=== PATIENT | female | born 1980 | race Asian ===

== ENCOUNTER 2022-03-09 18:41 | Emergency (ER) | payer OTHER, SELFPAY ==
--- NOTE | 2022-03-09 18:45 | ED.URI ---
HPI - URI/Sore Throat General Chief Complaint: Upper Respiratory Infection Stated Complaint: Sore Throat Time Seen by Provider: 03/09/22 19:06 Source: patient and RN notes reviewed Mode of arrival: ambulatory Limitations: no limitations History of Present Illness HPI Narrative: 42-year-old female presents concern for sore throat with painful swallowing, painful talking. She reports her symptoms started on Tuesday with sore throat, aches, chills, headache. Reports she had her sore throat is continuing. Reports she has been using throat lozenges and doing saltwater gargles without relief. She reports she was at an [employer] game Tuesday or before symptoms started. Reports she was seen at an eye doctor today and diagnosed with conjunctivitis. MD elicited complaint: sore throat Related Data Allergies Allergy/AdvReac Type Severity Reaction Status Date / Time No Known Allergies Allergy Verified 03/09/22 19:05 Review of Systems Review of Systems: CONSTITUTIONAL: Report malaise, chills. Denies sweats, or fever. EYES: Denies visual changes, redness, or discharge. ENT: Denies rhinorrhea, congestion, sinus pain, otalgia. Reports sore throat. CARDIOVASCULAR: Denies chest pain, palpitations, or edema. RESPIRATORY: Denies cough. Denies dyspnea. GASTROINTESTINAL: Denies abdominal pain, nausea, vomiting, diarrhea SKIN: Denies rash or itching. MUSCULOSKELETAL: Denies myalgia. NEUROLOGIC: Reports headache. All systems reviewed & are unremarkable except as noted in HPI and below PMFSH Comments At time of signature, agree with nursing past medical, surgical, social and family history. There is no relevant family history pertinent to the presenting complaint Exam Narrative: GENERAL: Well-appearing, well-nourished, and in no acute distress. HEAD: Normocephalic EYES: PERRLA, conjunctivae clear ENT: Nares clear. Mucous membranes moist. TM pearly sow with sharp light reflex bilaterally; no tragal tenderness. Oropharynx erythematous without lesions. Tonsils enlarged and without exudate, no drooling, no hoarseness, no trismus, uvula midline. NECK: Supple. No lymphadenopathy CHEST: Clear to auscultation, breath sounds equal. No wheezing, rhonchi, rales, or stridor. No respiratory distress, speaks in full sentences. HEART: Regular rate and rhythm. No murmur heard. SKIN: Warm, dry, no rash. NEURO: Alert and oriented x3. PSYCH: Normal mood and affect Course Course Emergency Course: Patient is aware of diagnosis, understands and agrees to treatment plan. Anticipatory guidance given. Patient agrees to follow-up as directed and is aware of reasons to seek care at the emergency department. Portions of this record may have been created with voice recognition software Level of Care: Express Care Visit Vital Signs Vital signs: Reviewed. MDM - URI/Sore Throat MDM Narrative Medical decision making narrative: Differential diagnosis considered: Galeana virus, strep pharyngitis, allergic rhinitis, upper respiratory tract infection, sinusitis, rhinosinusitis, nasopharyngitis. viral pharyngitis, otitis media, otitis externa, pneumonia, bronchitis, viral cough syndrome, viral syndrome, and influenza. Exam findings show no acute concerns or changes; patient is non-toxic appearing and is in no distress. Patient is appropriate for outpatient treatment and follow-up. Lab Data Attestation: I reviewed the patient's lab results. Critical Care Time Critical Care Time Critical Care Time: No Discharge Plan Discharge Clinical Impression: Acute tonsillitis Patient Disposition: Home, Self-Care Condition: Stable Instructions: Antibiotic Form, Tonsillitis (ED) Additional Instructions: -Take the medication as prescribed. Throw away the toothbrush after 24hours of antibiotic. -Eat and drink things that are easy to swallow, like tea or soup, or popsicles to suck on. -Oral rinses such as: Salt water gargles and/or may use topical anesthetic (eg. Chloraseptic s
[2022-03-09 18:50] VITALS: BP 125/74; PULSE 89; RESP 16; TEMP 36.7; O2SAT 100
== END 2022-03-09 19:24 | disposition home or self-care (01) ==
PROVIDERS: Emergency Provider Nurse Practitioner; PCP Internal Medicine
DX: J03.90 Acute tonsillitis, unspecified (principal)
CPT/HCPCS: 87081; 87880; 99213; G0463

== ENCOUNTER 2024-07-03 18:45 | Emergency (ER) | payer OTHER, SELFPAY ==
--- OUTSIDE RECORDS SUMMARY | 2024-07-03 18:48 | XMS_ITS | Encounter Summary ---
Author Organization [facility] Address [address] [place] [address] Care Team Providers Care Utility Locator Name Role Phone Arie Adame MD Primary Care Provider Encounter Details Date Type Department Care Team (Late st Contact Info) Description 06/30/2024 External Device Data [facility] ABSTRACTION Provider, Abstract NO ADDRESS ON FILE Social History Tobacco Use Types Packs/Day Years Used Date Smoking Tobacco: Never Passive Smoke Exposure: Never Smokeless Tobacco: Never Alcohol Use Standard Drinks/Week Comments No 0 (1 standard drink = 0.6 oz pur e alcohol) Comments No Sex and Gender Information Value Date Recorded Sex Assigned at Not on file Legal Sex Female 3:31 PM DATA ADMINISTRATOR Gender Identity Not on file Sexual Orientation Not on file documented as of this encounter Plan of Treatment Not on file documented as of this encounter Visit Diagnoses Not on filedocumented in this encounter Care Teams Utility Locator Relationship Specialty Start Date End Date Arie Adame MD PCP - General Internal Medicine 05/07/16 documented as of this encounter
--- OUTSIDE RECORDS SUMMARY | 2024-07-03 18:48 | XMS_ITS | Encounter Summary ---
Author Organization [facility] Address [address] [place] [address] Care Team Providers Care Instrumental Music Teacher Name Role Phone Arie Adame MD Primary Care Provider [phone] Reason for Visit * Reason Onset Date Comments Results 02/03/2024 Encounter Details Date Type Department Care Team (Late st Contact Info) Description 02/03/2024 Telephone [facility] [address] [place] [address] Arie Adame MD [address] [place] [address] [address] [place] [address] Results Social History Tobacco Use Types Packs/Day Years Used Date Smoking Tobacco: Never Passive Smoke Exposure: Never Smokeless Tobacco: Never Alcohol Use Standard Drinks/Week Comments No 0 (1 standard drink = 0.6 oz pur e alcohol) Comments No Sex and Gender Information Value Date Recorded Sex Assigned at Not on file Legal Sex Female 3:31 PM SPINNING FRAME CLEANER Gender Identity Not on file Sexual Orientation Not on file documented as of this encounter Plan of Treatment Not on file documented as of this encounter Visit Diagnoses Not on filedocumented in this encounter Care Teams Instrumental Music Teacher Relationship Specialty Start Date End Date Arie Adame MD PCP - General Internal Medicine 05/07/16 documented as of this encounter
--- OUTSIDE RECORDS SUMMARY | 2024-07-03 18:48 | XMS_ITS | Clinical Summary ---
Author Organization [facility] Address [address] [place] [address] Care Team Providers Care Registered Land Surveyor Name Role Phone Aire Adame MD Primary Care Provider [phone] Allergies Active Allergy Reactions Criticality Noted Date Comments Buspirone Nausea and Vomiting Low 02/19/2019 Reaction: nausea, Escitalopram Other (See Comments) 02/19/2019 Reaction: made her more anxious, Methylprednisolone Diarrhea,Headache,Na us ea and Vomiting Low 02/19/2019 Trazodone Rash Low 01/07/2017 Medications clonazePAM (KlonoPIN RAPID DISSOLVE) 0.25 mg Tablet, Rapid Dissolve Take 1 Tablet (0.25 mg) by mouth nightly as needed for Anxiety. 30 Tablet 3 03/27/2021 Active buPROPion HCL (Wellbutrin XL) 150 mg Extended Release 24 hour tablet Take 1 Tablet (150 mg) by mouth daily in the morning. 30 Tablet 6 03/27/2021 Active nitrofurantoin (MACROBID) 100 mg capsule Take 1 Capsule (100 mg) by mouth 2 times daily. 10 Capsule 04/28/2022 Active Active Problems Patient Care Coordination No te Formatting of this note migh t be different from the original. Prev 09/25/21 Problem Noted Date Diagnosed Date Malignant neoplasm of upper- outer quadrant of right breast in female, estrogen receptor negative 08/23/2022 Anxiety disorder 05/07/2016 Gastroesophageal reflux disease 08/21/2015 Overview (12/14/2023): GERD (gastroesophageal reflux disease) Anemia 06/11/2014 Overview (12/14/2023): Anemia Headache 09/08/2013 Overview (12/14/2023): Mixed headache Encounters Date Type Department Care Team Description 06/30/2024 External Device Data [facility] ABSTRACTION Provider, Abstract 06/29/2024 External Device Data [facility] ABSTRACTION Provider, Abstract 06/19/2024 External Device Data [facility] ABSTRACTION Provider, Abstract 06/13/2024 External Device Data [facility] ABSTRACTION Provider, Abstract 05/22/2024 External Device Data [facility] ABSTRACTION Provider, Abstract from Last 3 Months Immunizations Immunization Administration Dates Next Due (ADACEL/BOOSTRIX)(10 YR UP) TDAP VACCINE, 0.5ML, IM 05/07/2016 Family History Relation Name Status Comments Brother Alive Daughter Alive Father Alive Maternal Grandfather Maternal Grandmother Mother Alive Paternal Grandfather Paternal Grandmother Alive Sister Alive Son 1 Alive Son 2 Alive Social History Tobacco Use Types Packs/Day Years Used Date Smoking Tobacco: Never Passive Smoke Exposure: Never Smokeless Tobacco: Never Tobacco Cessation:Counseling Given: No Alcohol Use Standard Drinks/Week Comments No 0 (1 standard drink = 0.6 oz pur e alcohol) Comments No Sex and Gender Information Value Date Recorded Sex Assigned at Not on file Legal Sex Female 3:31 PM RESIDENCE LIFE DIRECTOR Gender Identity Not on file Sexual Orientation Not on file Last Filed Vital Signs Vital Sign Reading Time Taken Comments Blood Pressure 116/76 12/23/2023 1:32 PM CDT Pulse 72 12/23/2023 1:32 PM CDT Temperature 36.7 C (98 F) 12/23/2023 1:32 PM CDT Respiratory Rate - - Oxygen Saturation 98% 12/23/2023 1:32 PM CDT Inhaled Oxygen Concentration - - Weight 83.5 kg (184 lb) 12/23/2023 1:32 PM CDT Height 162.6 cm (5' 4 ) 12/23/2023 1:32 PM CDT Body Mass Index 31.58 12/23/2023 1:32 PM CDT Plan of Treatment Health Maintenance Due Date Last Done Comments Pre-Diabetes and Diabetes Screening 1978 HEPATITIS B VACCINES (1 of 3 - 19+ 3-dose series) 1997 CERVICAL CANCER SCREENING 01/14/2008 COLORECTAL SCREENING 2023 Colorectal Cancer Screening 2023 FIT-DNA Q 3 years 2023 FIT/FOBT Q 1 year 2023 Flex Sig/CT Colonography Q 5 years 2023 BREAST CANCER SCREENING 07/10/2023 07/10/19, 05/17/2022, 05/15/2022, Additional history exists INFLUENZA VACCINE (#1) 2023 02/19/2019 Preventative Visit- Commercial 04/25/2024 09/25/2021, 03/27/2021, 05/26/2018, Additional history exists DTAP/TDAP/TD VACCINES (2 - Td or Tdap) 05/07/2026 05/07/2016 HPV VACCINES Aged Out No longer eligi ble based on patient's age to complete this topic Procedures Procedure Name Priority Date/Time Associated Diagnosis Comments MAMMO SCREENING BILAT Routine 05/17/2022 from Last 3 Months or Most Recently Relevant to Health Maintenance Results * MAMMO SCREENING BILAT (05/17/2022) Anatomical Region Laterality Modality Breast Bilateral Other us Abstract Provider MAMMO ORDERABLES Final Result from Last 3 Months or Most Recently Relevant to Health [place] [id number] [place] [id number] Care Teams Registered Land Surveyor Relationship Specialty Start Date End Date Arie Adame MD PCP - General Internal Medicine 05/07/16
--- OUTSIDE RECORDS SUMMARY | 2024-07-03 18:50 | XMS_ITS | Encounter Summary ---
Author Organization [facility] Address [address] [place] [address] Care Team Providers Care Alarm Operator Name Role Phone Arie Adame MD Primary Care Provider + Reason for Visit * Reason Onset Date Comments Scheduling Appointments 11/20/2020 Confirmi ng mammogram appt- no answer Encounter Details Date Type Department Care Team (Late st Contact Info) Description 11/20/2020 Telephone [facility] [address] [place] [phone] Scheduling Appointments ( Confirming mammogram appt- no answer) Social History Tobacco Use Types Packs/Day Years Used Date Smoking Tobacco: Never Alcohol Use Standard Drinks/Week Comments No 0 (1 standard drink = 0.6 oz pur e alcohol) Comments Unknown Sex and Gender Information Value Date Recorded Sex Assigned at Not on file Legal Sex Female 1:11 AM SPIRAL TUBE WINDER Gender Identity Not on file Sexual Orientation Not on file documented as of this encounter Plan of Treatment Not on file documented as of this encounter Visit Diagnoses Not on filedocumented in this encounter Care Teams Alarm Operator Relationship Specialty Start Date End Date Arie Adame MD PCP - General Internal Medicine 06/12/18 documented as of this encounter
--- OUTSIDE RECORDS SUMMARY | 2024-07-03 18:50 | XMS_ITS | Referral Summary ---
Author Organization [facility] Address [address] [place] [address] Care Team Providers Care Oracle Brm Developer Name Role Phone Arie Adame MD Primary Care Provider + Allergies Active Allergy Reactions Criticality Noted Date Comments Buspirone Nausea only Low Reaction: nausea, Escitalopram Other (See comments) Reaction: made her more anxious, Methylprednisolone Nausea only,Vomiting,Diarrhea ,Headache Reaction: N, V, diarrhea, headache, Trazodone Rash Medium 01/07/2017 Medications acetaminophen-a spirin-caffeine (EXCEDRIN MIGRAINE) 250-250-65 mg per tablet otc 0 0 5 Active Additional Information Patient not taking.Reported on 08/24/2022 ibuprofen (ADVIL) 200 mg tab/cap take 1 tablet by oral route every 6 hours as needed with food 0 0 6 Active Additional Information Patient not taking.Reported on 08/24/2022 medroxyPROGESTE Sae (PROVERA) 10 mg tablet Take 1 tablet by oral route daily for 10 days 10 tablet 8 Active Additional Information Patient not taking.Reported on 08/24/2022 b complex vitamins (BALANCE B-50) tablet daily. 5 Active clonazePAM (KlonoPIN) 2 mg tablet Active nxmpl-3-rry-epa -dpa-fish oil 1,050-1,200 mg capsule TAKE DIRECTED. 5 Active fluticasone (FLONASE) 50 mcg/actuation nasal sprayIndication s:Nasal congestion Administer 2 sprays into each nostril daily. 16 g 9 Active UNABLE TO FIND Med Name: livia for irritability Active Active Problems Problem Noted Date Diagnosed Date Malignant neoplasm of upper- outer quadrant of right breast in female, estrogen receptor negative 08/23/2022 Cancer Staging:Clinical stage from 08/25/2022:Stage IA(cT1, cN0, cM0, G3, ER-, MD- , HER2+) - Signed by Jo Ann Palacios MD on 08/25/2022 Gastroesophageal reflux disease 08/21/2015 Overview (07/30/2016): GERD (gastroesophageal reflux disease) Anemia 06/11/2014 Overview (07/31/2016): Anemia Headache 09/08/2013 Overview (07/28/2016): Mixed headache Social History Tobacco Use Types Packs/Day Years Used Date Smoking Tobacco: Never Alcohol Use Standard Drinks/Week Comments No 0 (1 standard drink = 0.6 oz pur e alcohol) AUDIT-C Answer Date Recorded Q1: How often do you have a drink containing alcohol? Never 08/24/2022 Q2: How many drinks containi ng alcohol do you have on a typical day when you are drinking? Patient does not drink Q3: How often do you have si x or more drinks on one occasion? Never 08/24/2022 Comments Unknown Sex and Gender Information Value Date Recorded Sex Assigned at Not on file Legal Sex Female 1:11 AM PILE DRIVER OPERATOR Gender Identity Not on file Sexual Orientation Not on file Last Filed Vital Signs Vital Sign Reading Time Taken Comments Blood Pressure 108/70 06/12/2018 7:44 PM PILE DRIVER OPERATOR Pulse 94 06/12/2018 7:44 PM PILE DRIVER OPERATOR Temperature 37.1 C (98.7 F) 06/12/2018 7:44 PM PILE DRIVER OPERATOR Respiratory Rate 20 06/12/2018 7:44 PM PILE DRIVER OPERATOR Oxygen Saturation 98% 06/12/2018 7:44 PM PILE DRIVER OPERATOR Inhaled Oxygen Concentration - - Weight 85.3 kg (188 lb) 08/24/2022 8:26 AM CDT Height 162.6 cm (5' 4 ) 08/24/2022 8:26 AM CDT Body Mass Index 32.27 08/24/2022 8:26 AM CDT Plan of Treatment Not on file Procedures Procedure Name Priority Date/Time Associated Diagnosis Comments SCREENING MAMMOGRAM BILATERAL W ANDREA Schedule Routine, Read Routine (OP Routine) 05/15/2022 11:38 AM PILE DRIVER OPERATOR Screening mammogram, encounter for from Last 3 Months or Most Recently Relevant to Health Maintenance Results * (ABNORMAL) Screening Mammogram Bilateral W Andrea (05/15/2022 11:38 AM PILE DRIVER OPERATOR) Anatomical Region Laterality Modality Breast Bilateral Mammography 05/17/2022 2:04 PM PILE DRIVER OPERATOR Impressions 05/17/2022 2:04 PM PILE DRIVER OPERATOR Grouped right breast calcifications and an asymmetry in the outer right breast. Recommend diagnostic right breast mammogram with possible ultrasound. No evidence of malignancy in the left breast. Recommend screening left breast mammogram in one year. BI-RADS: 0 - Additional imaging evaluation is necessary. The patient will be contacted. Electronically signed by: Edmond King M.D. Narrative 05/17/2022 2:04 PM PILE DRIVER OPERATOR EXAMINATION: SCREENING MAMMOGRAM BILATERAL W ANDREA ORDERING HEALTHCARE PROVIDER: SELF SCREENING MAMMOGRAM HISTORY: Routine screening mammography. COMPARISON: 11/21/2020, 06/02/2015 TECHNIQUE: CC and MLO views of the bilateral breasts were obtained with digital technique using breast tomosynthesis with C view. Computer aided detection was utilized. FINDINGS: DENSITY: The tissue of the bilateral breasts is heterogeneously dense, which may obscure small masses. BREASTS: There are indeterminate grouped calcifications in the outer right breast at middle depth. There is a asymmetry on the cc view in the outer right breast at middle depth. There are no suspicious findings in the left breast. us Self Screening Mammogram IMG MAMMO PROCEDURES Fi nal Result from Last 3 Months or Most Recently Relevant to Health Maintenance Insurance [facility] [employer] [facility] [employer] [facility] [employer] Care Teams Oracle Brm Developer Relationship Specialty Start Date End Date Arie Adame MD PCP - General Internal Medicine 06/12/18
--- OUTSIDE RECORDS SUMMARY | 2024-07-03 18:50 | XMS_ITS | Clinical Summary ---
Author Organization [facility] Address [address] [place] [address] Care Team Providers Care Used Car Make Ready Worker Name Role Phone Arie Adame MD Primary [...] Active clonazePAM (KlonoPIN) 2 mg tablet Active quyvp-5-ifg-epa -dpa-fish oil 1,050-1,200 mg capsule TAKE DIRECTED. 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 f/u w/Dr. Shade Sanchez mri q3 years. Hx Other Medical ; Outc ome: 7lb(s) 8 oz Hx Other Medical ; Outc ome: 8lb(s) 2 oz Hx Other Medical ; Outc ome: 8lb(s) 15 oz Family History Medical History Relation Name Comments Other Brother 2 Alive and well; Other Father Alive and well; Other Mother Alive and well; Breast cancer Mother's Sister Other Sister 2 Alive and well; Relation Name Status Comments Brother 1 Alive Brother 2 Father Alive Mother Alive Mother's Sister Sister 1 Alive Sister 2 Social History Tobacco Use Types Packs/Day Years [...] file Legal Sex Female 1:11 AM SPIRAL MACHINE OPERATOR Gender Identity Not on file Sexual Orientation Not on file Obstetrics History Para Term AB IAB SAB Ectopic Multiple Livin g Live Births 5 3 3 Date Outcome GA Total Labor Labor/2nd/3rd Weight Sex Type Anes PTL Joi A1 A5 Name Clin Term Term Term Last Filed Vital Signs Vital Sign Reading Time Taken Comments Blood Pressure 108/70 06/12/2018 7:44 PM SPIRAL MACHINE OPERATOR Pulse 94 06/12/2018 7:44 PM SPIRAL MACHINE OPERATOR Temperature 37.1 C (98.7 F) 06/12/2018 7:44 PM SPIRAL MACHINE OPERATOR Respiratory Rate 20 06/12/2018 7:44 PM SPIRAL MACHINE OPERATOR Oxygen Saturation 98% 06/12/2018 7:44 PM SPIRAL MACHINE OPERATOR Inhaled Oxygen Concentration - - Weight 85.3 kg (188 lb) 08/24/2022 8:26 AM CDT Height 162.6 cm (5' 4 ) 08/24/2022 8:26 AM CDT Body Mass Index 32.27 08/24/2022 8:26 AM CDT Plan of Treatment Health Maintenance Due Date Last Done Comments Cervical Cancer Screening 1978 Colon Cancer Screening-Colonoscopy 1978 Depression Screening 1978 Hepatitis C Screening 1978 Hepatitis B Screening 01/14/1996 Regular Well Visit/Exam 18-64 01/14/1996 Breast Cancer Screening-Mammogram 05/17/2023 05/17/2022, 05/15/2022, 11/21/2020, Additional history exists Influenza Vaccine (#1) 2023 DTaP/Tdap/Td Vaccine (2 - Td or Tdap) 05/07/2026 05/07/2016 HPV Vaccines Aged Out No longer eligi ble based on patient's age to complete this topic Pneumococcal vaccine <65 Aged Out No longer eligible based on patient's age to complete this topic Procedures Procedure Name Priority Date/Time Associated Diagnosis Comments SCREENING MAMMOGRAM BILATERAL W ANDREA Schedule Routine, Read Routine (OP Routine) 05/15/2022 11:38 AM SPIRAL MACHINE OPERATOR Screening mammogram, encounter for from Last 3 Months or Most Recently Relevant to Health Maintenance Results * (ABNORMAL) Screening Mammogram Bilateral W Andrea (05/15/2022 11:38 AM SPIRAL MACHINE OPERATOR) Anatomical Region Laterality Modality Breast Bilateral Mammography 05/17/2022 2:04 PM SPIRAL MACHINE OPERATOR Impressions 05/17/2022 2:04 PM SPIRAL MACHINE OPERATOR Grouped right breast calcifications and an asymmetry in the outer right breast. Recommend diagnostic right breast mammogram with possible ultrasound. No evidence of malignancy in the left breast. Recommend screening left breast mammogram in one year. BI-RADS: 0 - Additional imaging evaluation is necessary. The patient will be contacted. Electronically signed by: Edmond King M.D. Narrative 05/17/2022 2:04 PM SPIRAL MACHINE OPERATOR EXAMINATION: SCREENING MAMMOGRAM BILATERAL W ANDREA [...] Most Recently Relevant to Health Maintenance Insurance [facility]/PPO Address: [address] [address] [place] [address] [facility] PL[facility] H[facility]/PPO Address: [address] [address] [place] [address] [facility] CHOICE PLUS [facility] H[facility]/PPO Address: [address] [address] [place] [address] Care Teams Used Car Make Ready Worker Relationship Specialty Start Date End Date Arie Adame MD PCP - General Internal Medicine 06/12/18
--- OUTSIDE RECORDS SUMMARY | 2024-07-03 18:50 | XMS_ITS | Encounter Summary ---
Author Organization [facility] Address [address] [place] [address] Care Team Providers Care Bakery Manager Name Role Phone Arie Aadme MD Primary Care Provider + Reason for Visit * Reason Onset Date Comments Scheduling Appointments 11/14/2020 Confirmi ng mammogram appt- no answer Encounter Details Date Type Department Care Team (Late st Contact Info) Description 11/14/2020 Telephone [facility] [address] [place] [phone] Scheduling Appointments (Confirming mammogram appt- no answer ) Social History Tobacco Use Types Packs/Day Years Used Date Smoking Tobacco: Never Alcohol Use Standard Drinks/Week Comments No 0 (1 standard drink = 0.6 oz pur e alcohol) Comments Unknown Sex and Gender Information Value Date Recorded Sex Assigned at Not on file Legal Sex Female 1:11 AM STONECUTTER Gender Identity Not on file Sexual Orientation Not on file documented as of this encounter Plan of Treatment Not on file documented as of this encounter Visit Diagnoses Not on filedocumented in this encounter Care Teams Bakery Manager Relationship Specialty Start Date End Date Arie Adame MD PCP - General Internal Medicine 06/12/18 documented as of this encounter
--- OUTSIDE RECORDS SUMMARY | 2024-07-03 18:50 | XMS_ITS | Encounter Summary ---
Author Organization [facility] Address [address] [place] [address] Phone Care Team Providers Care Timber Harvester Operator Name Role Phone Arie Adame MD Primary Care Provider + Encounter Details Date Type Department Care Team (Late st Contact Info) Description 08/27/2022 Telephone [facility] [address] 7[address] [place] [address] [place] [address] Roxana Meredith Social History Tobacco Use Types Packs/Day Years [...] on file Legal Sex Female 1:11 AM [employer] Gender Identity Not on file Sexual Orientation Not on file documented as of this encounter Plan of Treatment Not on file documented as of this encounter Visit Diagnoses Not on filedocumented in this encounter Care Teams Timber Harvester Operator Relationship Specialty Start Date End Date Arie Adame MD PCP - General Internal Medicine 06/12/18 documented as of this encounter
[2024-07-03 18:54] VITALS: BP 119/69; PULSE 95; RESP 18; TEMP 36.5; O2SAT 100
--- NOTE | 2024-07-03 19:13 | ED.URI ---
HPI - URI/Sore Throat General Chief Complaint: Upper Respiratory Infection Stated Complaint: Body Aches/Cough/Fatigue Time Seen by Provider: 07/03/24 19:05 Source: patient, RN notes reviewed and old records reviewed Mode of arrival: ambulatory Limitations: no limitations History of Present Illness HPI Narrative: 44 year old female who presents to [facility] care with complaints of cough, body aches, fevers, feeling cjilld and cold and also having nasal stuffiness. Patient reports that she has had symptoms since Tuesday and has been taking Sudafed and Advil multi-symptom medications. Fever highest noted of 101F. MD elicited complaint: fever, cough, rhinorrhea, nasal congestion and other (body aches, chills) Onset (ago): day(s) (3) Consistency: constant Severity: moderate Description of mucous: clear Able to tolerate fluids by mouth: No Treatments prior to arrival: ibuprofen and other (multi-symptom medication and Sudafed) Related Data Home Medications ?Medication ?Instructions ?Recorded ?Confirmed ?Last Taken ?Type No Home Medications 07/03/24 07/03/24 Unknown History Allergies Allergy/AdvReac Type Severity Reaction Status Date / Time No Known Allergies Allergy Verified 07/03/24 18:49 Review of Systems Review of Systems: CONSTITUTIONAL: Reports malaise, chills, sweats, or fever. EYES: Denies visual changes, redness, or discharge. ENT: Reports rhinorrhea, congestion, sinus pain, no otalgia and no sore throat. CARDIOVASCULAR: Denies chest pain, palpitations, or edema. RESPIRATORY: Reports cough.? Denies dyspnea. GASTROINTESTINAL: Denies abdominal pain, nausea, vomiting, diarrhea SKIN: Denies rash or itching. MUSCULOSKELETAL: Reports myalgia. NEUROLOGIC: Denies headache. All systems reviewed & are unremarkable except as noted in HPI and below PMFSH Past Medical History Medical History (Updated 07/03/24 @ 19:30 by Donna Mercado NP) Breast asymmetry Screening for breast cancer Surgical History Surgical History History of back surgery History of delivery Social History Social History Smoking status: Never smoker Alcohol intake: never Substance use: never Living arrangements: with family Occupation/Education: occupation Gender identity (if verbalized by the patient): Female Sexual Orientation (if Verbalized by the Patient): Straight or Heterosexual Comments At time of signature, agree with nursing past medical, surgical, social and family history. There is no relevant family history pertinent to the presenting complaint Exam Narrative: GENERAL: Well-appearing, well-nourished, and in no acute distress. HEAD: Normocephalic EYES: PERRLA, conjunctivae clear ENT: Nares clear, turbinates edematous and erythematous, clear discharge. Mucous membranes moist. TM pearly sow with dull light reflex bilaterally; no tragal tenderness. Oropharynx erythematous without lesions. Tonsils not enlarged and without exudate, no drooling, no hoarseness, no trismus, uvula midline. post nasal drainage NECK: Supple. No lymphadenopathy CHEST: Clear to auscultation, breath sounds equal. No wheezing, rhonchi, rales, or stridor. No respiratory distress, speaks in full sentences. cough noted SAO2 100% on room air. HEART: Regular rate and rhythm. No murmur heard. SKIN: Warm, dry, no rash. NEURO: Alert and oriented x3. PSYCH: Normal mood and affect Course Course Emergency Course: Patient is aware of diagnosis, understands and agrees to treatment plan.? Anticipatory guidance given.? Patient agrees to follow-up as directed and is aware of reasons to seek care at the emergency department. Portions of this record may have been created with voice recognition software Level of Care: Express Care Visit Vital Signs Vital signs: Vital Signs Temperature 36.5 C 07/03/24 18:54 Pulse Rate 95 07/03/24 18:54 Respiratory Rate 18 07/03/24 18:54 Blood Pressure 119/69 07/03/24 18:54 Pulse Oximetry 100 07/03/24 18:54 Oxygen Delivery Room Air 07/03/24 18:54 Temperature 36.5 C 07/03/24 18:54 Pulse Rate 95 07/03/24 18:54 Respiratory Rate 18 07/03/24 18:54 Blood Pressure 119/69 07/03/24 18:54 Pulse Oximetry 100 07/03/24 18:54 Oxygen Delivery Room Air 07/03/24 18:54 Reviewed MDM - URI/Sore Throat MDM Narrative Medical decision making narrative: Differential diagnosis considered: [place] virus, strep pharyngitis, allergic rhinitis, upper respiratory tract infection, sinusitis, rhinosinusitis, nasopharyngitis. viral pharyngitis, otitis media, otitis externa, pneumonia, bronchitis, viral cough syndrome, viral syndrome, and influenza.? Exam findings show no acute concerns or changes; patient is non-toxic appearing and is in no distress.? Patient is appropriate for outpatient treatment and follow-up. Differential Diagnosis Differential diagnosis: Likely upper respiratory infection, sinusitis, viral infection, influenza and other (COVID, cough) Medical Records Attestation: I reviewed the patient's medical records. Lab Data Attestation: I reviewed the patient's lab results. Lab results narrative: influenza A negative, Influenza B positive, COVID antigen negative Labs: Lab Results 07/03/24 Range/Units 19:24 POC Influenza A Ag Negative (Negative) POC Influenza B Ag Positive (Negative) POC SARS CoV-2 Ag Negative (Negative) reviewed Critical Care Time Critical Care Time Critical Care Time: No Discharge Plan Discharge Clinical Impression: Influenza Patient Disposition: Home, Self-Care Condition: Stable Instructions: Influenza (ED) Additional Instructions: Increase fluids especially juices and water [id number] cough and cold medicine of your choice for your symptoms Tylenol or ibuprofen for any fever pain Zyrtec Claritin or Emilie daily heat to the face 20-30 minutes 4-6 times a day for pain Salt water gargles, throat lozenges or throat sprays as desired If your symptoms persist, change or worsen significantly before you can contact your personal physician then please, without delay, go to the emergency department for further evaluation. Follow-up with PCP in 7-10 days or sooner if needed You must be fever free for 24 hours without use of Tylenol or ibuprofen before you be around others typically influenza last 5 days from start of symptoms Patient Language: German Prescriptions: No Action No Home Medications Follow-up/Referrals: Wendi,Arie Rodríguez MD [Primary Care Provider] - Stand Alone Forms: Work/School Release IP Time of Disposition: 19:28 Quality [place] Coma Scale Eyes: Open Verbal: Oriented and Alert Motor: Follows Commands Jocelyn Coma Total Score: 15
[2024-07-03 19:26] LABS: EDCOVIDSCREEN Negative (Negative); EDINFLUASCREEN Negative (Negative); EDINFLUBSCREEN Positive (Negative)
== END 2024-07-03 19:35 | disposition home or self-care (01) ==
PROVIDERS: Emergency Provider Registered Nurse; PCP Internal Medicine
DX: J11.1 Influenza due to unidentified influenza virus with other respiratory manifestations (principal); Z20.822 Contact with and (suspected) exposure to COVID-19
CPT/HCPCS: 87426; 87804; 99212; G0463